=== PATIENT | male | born 1965 | race Caucasian/White ===

== ENCOUNTER 2016-12-02 17:18 | Emergency (ER) | payer SELFPAY ==
--- NOTE | ~2016-12-02 | EKG ---
PATIENT: SAE GLYNN UNIT #: [id number] Ventricular Rate: 94 BPM Atrial Rate: 94 BPM P-R Interval: 176 ms QRS Duration: 68 ms Q-T Interval: 360 ms QTC Calculation(Bezet): 450 ms P Ray: 61 degrees Calculated R Ray: -7 degrees Calculated T Ray: 47 degrees Diagnosis Line: Normal sinus rhythm Diagnosis Line: Septal infarct , age undetermined Diagnosis Line: Possible Inferior infarct , age undetermined Diagnosis Line: Abnormal ECG Diagnosis Line: No previous ECGs available Diagnosis Line: Confirmed by MASSIMO BOSTON MD ([id number]) on Diagnosis Line: 12/03/2016 4:28:33 PM INTERPRETING MD: LUDY NUNEZ
[2016-12-02 19:26] LABS: BASOPHIL# 0.1 X10e3 (0-0.3); BASOPHIL% 0.5 % (0-2.5); DIFF IND NO; HEMOGLOBIN 13.3 gm/dL (13.0-16.0); LYMPHOCYTE# 0.5 X10e3 (1.0-3.5); LYMPHOCYTE% 3.1 % (17.0-45.0); MEAN CELL VOLUME 103.7 FL (83-96); MEAN CORPUSCULAR HEMOGLOBIN 34.4 PG (28-34); MEAN CORPUSCULAR HGB CONC 33.2 g/dL (30-36); MONOCYTE# 0.4 X10e3 (0-1.0); MONOCYTE% 2.5 % (3.0-12.0); NEUTROPHIL# 13.9 X10e3 (1.5-7.1); NEUTROPHIL% 93.9 % (40-75); PLATELET COUNT 316 X10e3 (140-420); RED BLOOD COUNT 3.86 X10e (3.90-5.60); RED CELL DISTRIBUTION WIDTH 15.4 % (11.0-15.5); WHITE BLOOD COUNT 14.8 X10e3 (4.0-10.5)
[2016-12-02 19:58] LABS: ALBUMIN SERUM 5.1 g/dL (3.5-5.0); ALKALINE PHOSPHATASE 82 U/L (32-92); ALT (SGPT) 39 U/L (10-40); AST (SGOT) 74 U/L (10-42); BILIRUBIN, DIRECT 0.3 mg/dL (0.0-0.2); BILIRUBIN,INDIRECT 1.1 mg/dL (0.0-0.9); BILIRUBIN,TOTAL 1.4 mg/dL (0.2-2.0); BLOOD UREA NITROGEN 19 mg/dL (9-23); BUN/CREATININE RATIO 17.27; CALCIUM SERUM 9.9 mg/dL (8.4-10.2); CARBON DIOXIDE 25 mmol/L (22-31); CHLORIDE 90 mmol/L (100-111); CPK (CREATINE PHOSPHOKINASE) 310 IU/L (36-174); CREATININE SERUM 1.1 mg/dL (0.6-1.4); GLOM FILT RATE Estimated 78.4 mL/min (>60); GLUCOSE FASTING 180 mg/dL (70-110); POTASSIUM 4.3 mmol/L (3.5-5.1); PROTEIN TOTAL SERUM 8.9 g/dL (6.0-8.3); SODIUM 132 mmol/L (135-145)
[2016-12-02 20:00] LABS: ALCOHOL BLOOD <5 mg/dL (0)
[2016-12-02 20:29] LABS: AMPHETAMINE NEG (NEG); BARBITURATES NEG (NEG); BENZODIAZEPINES NEG (NEG); COCAINE NEG (NEG); MARIJUANA POS (NEG); OPIATES NEG (NEG); TRICYCLIC ANTIDEPRESSANTS NEG (NEG); U METHADONE NEG (NEG)
== END 2016-12-03 00:40 ==
LOC: CED 17:18
PROVIDERS: Emergency Medicine
DX: F10.231 Alcohol dependence with withdrawal delirium (principal); I10 Essential (primary) hypertension; F17.210 Nicotine dependence, cigarettes, uncomplicated
CPT/HCPCS: 36415; 80048; 80076; 80307; 82550; 85025; 93005; 96374; 99285; G0480; J2060

== ENCOUNTER 2016-12-02 21:00 | Inpatient (IN) | payer SELFPAY ==
--- NOTE | ~2016-12-02 | PN ---
Unit #: [id number] #: [id number] Patient: SAE NICOLE [id number] [facility] [address] [place] [address] [id number] MR#: [id number] NAME: SAE NICOLE ROOM: 82 Age: 51 Sex: M Admission Date: 12/03/2016 : 1965 Attending Physician: Krys Stoner M.D. Admitting Physician: Krys Stoner M.D. Primary Care Physician: Primary Care Physician Elenita MEMBRENO NOTES DATE OF SERVICE 12/04/2016 DISCUSSION Mr. Nicole is a 51-year-old white male with alcohol dependence who was seen today. Chart was reviewed and case was discussed with staff. It appears that he might be going through delirium tremens phase as he walked out and was unkempt disheveled and visibly shaking and tremulous and unsteady on his feet. It did not look good, but he stated that he is ready to get out of here, and that he has to get to work, and I tried to encourage him and redirect him stating that he is in the middle of the detox and that he is in no shape to get out of the hospital let alone to go to work, but he was not really able to (1) __ much of the information and staff has been asked to closely monitor and watch him. MENTAL STATUS EXAMINATION Middle-aged white male who is casually dressed with marginal personal hygiene, appears to be in slight distress or discomfort. The patient was awake and alert with impaired attention and concentration. His mood is anxious with congruent affect. He denies any suicidal or homicidal ideations. His insight and judgment remain significantly impaired. TREATMENT PLAN 1. We will continue him on his current treatment protocol. We will monitor his response to the medications and make further adjustments as needed. 2. We will continue to follow up. Dictated by... Angelica Cook/june TD: 12/05/2016 05:36 JOB #: [id number] Unit #: [id number] #: [id number] Patient: SAE NICOLE PROGRESS NOTES Page 1 of 1 X Krys Stoner MD NOTE
--- NOTE | ~2016-12-02 | PN ---
Unit #: [id number] #: [id number] Patient: SAE GLYNN [id number] [facility] [address] [place] [address] [id number] I MR#: [id number] NAME: SAE GLYNN ROOM: [facility] Age: 51 Sex: M Admission Date: 12/03/2016 : 1965 Attending Physician: Krys Stoner M.D. Admitting Physician: Krys Stoner M.D. Primary Care Physician: Primary Care Physician Elenita PRO PROGRESS NOTES DATE 12/05/2016 DISCUSSION Mr. Ponce is a 51-year-old, white male with alcohol dependence who was seen today and chart was reviewed and case was discussed with the staff. He has been anxious, withdrawn, disorganized and shaky and tremulous and showing very poor insight into his situation and not showing motivation towards treatment. Meanwhile, he has been taking the medication and tolerating them fairly well with no reported side effects. MENTAL STATUS EXAM Middle-aged white male who was casually dressed with marginal personal hygiene, appears to be in no acute distress or discomfort. He was awake and alert with impaired attention and concentration. His mood was anxious with congruent affect. His speech was slow and tangential. His thought processes were disorganized with some looseness of associations and flight of ideas. His insight and judgement remains significantly impaired. TREATMENT PLAN 1. We will continue him on his current medications and treatment protocol. We will monitor his response to the medications and make further adjustments as needed. 2. We will continue to follow up. Dictated by... Angelica Cook/barron TD: 12/06/2016 02:47 JOB #: [id number] Unit #: [id number] #: [id number] Patient: SAE GLYNN PEASAMANTHA PROGRESS NOTES Page 1 of 1 X Krys Stoner MD PROGRESS NOTE
--- NOTE | ~2016-12-02 | PA ---
Unit #: [id number] #: [id number] Patient: SAE GLYNN [id number] [facility] [address] [place] [address] [id number] I MR#: [id number] NAME: SAE GLYNN ROOM: P182 Age: 51 Sex: M Admission Date: 12/03/2016 : 1965 Date of Assessment: 12/03/2016 Attending Physician: Krys Stoner M.D. Admitting Physician: Krys Stoner M.D. Primary Care Physician: No Primary Care Physician PSYCHIATRIC ASSESSMENT IDENTIFYING DATA Mr. Glynn is a 51-year-old, single, white male who is a resident of [place], [place] and was transferred to our service from [facility] on a voluntary basis. CHIEF COMPLAINT "I have been a heavy drinker since I was 19 years old." HISTORY OF PRESENT ILLNESS Mr. Glynn is a 51-year-old, white male who was transferred from [facility] where he presented stating that he has been drinking since he was 19 years old and that "it has gotten worse in the last 2 months." He reports that he has been drinking 2 pints a day and he is experiencing significant tremors and that he is shaking so badly that his boss at work had noticed and he has asked him to get help and that he has desired to stop drinking on his own. He does report having difficulty and hard time due to increased bills and cost for alcohol addiction and having significant consequences because of his addiction. He also reports an increase in depression/anxiety, irritability, restlessness, and feelings of hopelessness and helplessness. He denies any suicidal ideation, intent, or plan. SUBSTANCE ABUSE HISTORY Patient has extensive history of substance abuse and dependency and reports that he has experimented and abused cannabis, crack, acid, inhalants, and amphetamines; but alcohol has been his drug of choice and reports that he has been drinking since he was 19 years old. Currently, he has been drinking 2 pints a day. PAST PSYCHIATRIC HISTORY Patient has had history of inpatient chemical dependency treatment in the past and reviewed the medical record and currently he is not active in a treatment program, is not seeing a psychiatrist, and is not taking any psychotropic medications. PAST MEDICAL HISTORY Hypertension. MEDICATION ALLERGIES No known medication allergies. PERSONAL AND SOCIAL HISTORY This is a 51-year-old, white male who reports that he is single and Unit #: [id number] #: [id number] Patient: SAE GLYNN employed and lives alone and has a poor social support system. MENTAL STATUS EXAMINATION Middle-age, white male who was casually dressed with a fair personal hygiene. Appears to be in no acute distress or discomfort. He was awake and alert on interaction with intact orientation to time, place, and person. His mood was anxious with a congruent affect. Speech was slow and goal-directed. He denies any suicidal or homicidal ideations and also denies any auditory or visual hallucinations. His insight and judgement remain slightly impaired. DIAGNOSTIC IMPRESSION PSYCHIATRIC 1. Alcohol dependence, moderate, in acute withdrawal. 2. Alcohol-induced mood disorder. MEDICAL: None. STRESSORS: Moderate psychosocial stressors. TREATMENT PLAN 1. Patient has presented with a history of mood disorder and this has been reconsidered and will need inpatient hospitalization for detoxification, safety, and stabilization. Will start him back on his home medications and will adjust the medications and monitor response. 2. Supportive therapy was provided to patient. 3. Safe, structured, and nourishing environment will be provided. ESTIMATED LENGTH OF STAY Five to seven days. ABILITY TO HELP SELF Limited. WILLINGNESS TO HELP SELF Patient appears to be willing to help self. STRENGTHS 1. Communicative. 2. Cooperative. PROBLEMS 1. Chronic dysphoric symptoms. 2. Chronic alcohol dependency. 3. Poor social support system. DISCHARGE CRITERIA This will be contingent upon patient's ability to go through detox without having any significant residual symptoms as well as ability to stay safe to himself particularly after discharge from the hospital. Dictated by... Krys Stoner M.D. Unit #: [id number] #: [id number] Patient: SAE GLYNN ALEJO/ham TD: 12/07/2016 10:09 JOB #: [id number] PSYCHIATRIC ASSESSMENT Page 1 of 1 X Krys Stoner MD PSYCHIATRIC ASSESSMENT
--- NOTE | ~2016-12-02 | DS ---
Unit #: [id number] #: [id number] [facility]: [facility] [id number] [facility] [address] [place] [address] [id number] I MR#: [id number] NAME: SAE GLYNN ROOM: [facility] Age: 51 Sex: M Admission Date: 12/03/2016 : 1965 Discharge Date: 12/06/2016 Attending Physician: Krys Stoner M.D. Primary Care Physician: Primary Care Physician No DISCHARGE SUMMARY IDENTIFYING DATA Mr. Ponce is a 51-year-old white male, who is a resident of [place], [place], and was self-referred to the hospital. DISCHARGE DIAGNOSES Psychiatric: Alcohol dependence, moderate, in acute withdrawal; alcohol-induced mood disorder. Medical: Hypertension. Stressors: Moderate psychosocial stressors. HISTORY OF PRESENT ILLNESS Please see initial psychiatric evaluation for details. PAST PSYCHIATRIC HISTORY Please see initial psychiatric evaluation for details. PAST MEDICAL HISTORY Please see initial psychiatric evaluation for details. HOSPITAL COURSE The patient was admitted to the adult chemical dependency unit at [facility] darlene Boyd and was oriented to the hospital environment. Routine p.r.n. medications were initiated, and he was started back on his home medications and alcohol detox protocol was initiated as well. He was taking the medications regularly and was tolerating them fairly well and was able to show a decent therapeutic response and was willing to continue treatment on an outpatient basis and as such, it was decided that he will be discharged home and will continue treatment on an outpatient basis. DISCHARGE MEDICATIONS None. DISCHARGE CONDITION Stable. PROGNOSIS Fair. Dictated by... Krys Stoner M.D. IAA/modl Unit #: [id number] #: [id number] Patient: SAE GLYNN TD: 12/06/2016 07:40 JOB #: [id number] DISCHARGE SUMMARY Page 1 of 1 X Krys Stoner MD X DISCHARGE SUMMARY
--- NOTE | ~2016-12-02 | HP ---
Unit #: [id number] #: [id number] Patient: SAE GLYNN [id number] [facility] [place] [address] [id number] I MR#: [id number] NAME: SAE GLYNN ROOM: P182 Age: 51 Sex: M Admission Date: 12/03/2016 : 1965 Attending Physician: Krys Stoner M.D. Admitting Physician: Krys Stoner M.D. Primary Care Physician: Primary Care Physician No HISTORY AND PHYSICAL HISTORY OF PRESENT ILLNESS Sae is a 51-year-old male admitted on 12/03/2016 to [facility] for detox from alcohol. PAST MEDICAL HISTORY Hypertension and BPH. PAST SURGICAL HISTORY Cervical fusion and tracheostomy. SOCIAL HISTORY Smokes 10 cigarettes daily. Drinks 2 pints of alcohol daily. Occasional use of marijuana. He is currently single and living alone. FAMILY HISTORY Noncontributory. REVIEW OF SYSTEMS CONSTITUTIONAL: No fever or chills. HEENT: Denies any sore throat, ear pain or runny nose. CARDIOVASCULAR: Denies chest pain, irregular heart rhythm or palpitations. CHEST: Denies shortness of breath or cough. No hemoptysis. GASTROINTESTINAL: Denies nausea, vomiting, diarrhea or chronic constipation. ENDOCRINE: Denies history of increased thirst or urination. No recent significant weight loss or gain. GENITOURINARY: Denies dysuria, frequency, or hematuria. SKIN: Denies any rashes. HEMATOLOGIC: Denies history of increased bleeding or bruising. MUSCULOSKELETAL: Denies any hot, swollen joints. No generalized muscle pain. NEUROLOGIC: Denies problems with vision or speech. No frequent, severe headaches. No numbness, tingling or weakness in any extremities. Denies loss of bladder or bowel control. CURRENT MEDICATIONS None. ALLERGIES None. PHYSICAL EXAMINATION GENERAL: Alert, oriented, no acute distress. Unit #: [id number] #: [id number] Patient: SAE GLYNN VITAL SIGNS: Blood pressure 175/127, heart rate 107, temperature 98.5, respirations 22. Height: 5 feet 6. Weight: 135 pounds. SKIN: Warm, dry. No rashes or lesions, track tillman, cuts, etc. HEENT: Normocephalic. TMs not viewed. Oronasal passages clear. Conjunctivae clear. PERRLA. EOM is intact. NECK: No lymphadenopathy or thyromegaly. HEART: Regular rate and rhythm. No murmur, gallop, or rub. LUNGS: Clear to auscultation bilaterally. ABDOMEN: Soft, nontender without palpable masses or hepatosplenomegaly. : Not assessed. EXTREMITIES: No evidence of cyanosis, clubbing, or edema. Moves all extremities independently without obvious deficit. NEUROLOGICAL: Grossly within normal limits. Cranial Nerves: II: Visual aguilar are intact. III, IV AND : Extraocular movements are intact. Pupils are equal, round and reactive to light. V: Facial sensation is grossly normal. VII: Facial movements and expression are normal. VIII: Auditory acuity grossly intact. IX, X: Uvula is midline. Phonation is normal. XI: Patient shrugs shoulders and turns head normally. XII: Tongue protrudes in the midline. Sensory and Motor Function: Sensory and motor sensation is grossly normal. Motor: moves all extremities well. Coordination: Gait is normal. Deep Tendon Reflexes: Intact. IMPRESSION 1. Psychiatric admission. 2. Hypertension. 3. Benign prostatic hypertrophy. RECOMMENDATIONS PSYCHIATRIC: Per psychiatrist. MEDICAL: No contraindication to participating in this facility's activities. MEDICAL PROGNOSIS Good. MEDICAL CONDITION Stable. Dictated by... Tez Solorzano/june TD: 12/03/2016 15:35 JOB #: [id number] Unit #: [id number] #: [id number] Patient: SAE GLYNN HISTORY AND PHYSICAL Page 1 of 1 X KHOA BROWN APRN HISTORY AND PHYSICAL
--- NOTE | ~2016-12-02 | CO ---
Unit #: [id number] #: [id number] Patient: SAE GLYNN [id number] [facility] [address] [place] [address] [id number] MR#: [id number] NAME: SAE GLYNN ROOM: 82 Age: 51 Sex: M Admission Date: 12/03/2016 : 1965 Attending Physician: Krys Stoner M.D. Primary Care Physician: Primary Care Physician No Requesting Physician: Krys Stoner M.D. Consultation Date: 12/03/2016 CONSULTATION REPORT HISTORY OF PRESENT ILLNESS Sae reports that he has a history of hypertension but has not been taking his medications since past prescribed. While he is here his blood pressure has been 175/127, 146/104, 121/92 and 143/89. He is taking p.r.n. clonidine for blood pressure. He cannot recall what he had been taking previously for his blood pressures at home. He has no complaints. PHYSICAL EXAM CARDIAC: Regular rate and rhythm. No murmur, gallop or rub. RESPIRATORY: Clear to auscultation bilaterally. ASSESSMENT AND PLAN Hypertension. We will continue with clonidine as prescribed and add amlodopine 2.4 mg p.o. daily. The patient will followup with primary care. Dictated by..Areli PrajapatiPMistiRKimberly for Dwight TD: 12/04/2016 23:26 JOB #: [id number] CONSULTATION REPORT Page 1 of 1 X KHOA BROWN APRN CONSULTATION REPORT
--- NOTE | ~2016-12-02 | A ---
[facility] Nutrition Therapy DATE: 12/05/16 Patient: SAE GLYNN Physician: AFAIRF [address] Room/Bed: [address], Zip: [place] [address] Admit Date: 12/03/16 Date of : [birth year] Height: 5 6 Weight: [phone] NUTRITIONAL ASSESSMENT: REASON: NUTRITION RISK POINT- UNINTENTIONAL WEIGHT LOSS PATIENT ADMITTED FOR ETOH DETOX PMH: HTN Anthropometrics: HT: 5'6", WT: 135#, BMI: 21.8, %IBW: 95 Labs: 12/03/16 NA: 132 Meds: DETOX PROTOCOL, VIT B COMPLEX, MVI Assessment: PATIENT IS A 51 Y/O MALE ADMITTED FOR ETOH DETOX. PATIENT IS CURRENTLY EMPLOYED, LIVES ALONE, SMOKES 1/2 PPD, HAS DAILY ETOH AND MARIJUANA USE, AND A SIGNIFICANT HX OF ILLICIT SUBSTANCE ABUSE. PATIENT HAS BEEN DRINKING 2 PINTS ETOH DAILY FOR 30 YEARS. UPON ADMIT PATIENT STATED A POOR APPETITE WITH A 30# WEIGHT LOSS OVER LAST SEVERAL MONTHS. IT IS NOTED THAT PATIENT HAS BEEN EXPERIENCING CONFUSION AND DISORIENTATION, AND IS MOST LIKELY IN THE DELIRIUM TREMENS PHASE OF HIS DETOX. IT IS UNCLEAR IF PATIENT'S STATED WEIGHT LOSS IS ACCURATE D/T NO PREVIOUS WEIGHT HX RECORDED. NURSING REPORTS FAIR-GOOD PO INTAKES. PATIENT'S BMI AND % IBW ARE WITHIN HEALTHY RANGES. PATIENT IS ON A REGULAR DIET, AND THERE ARE NO SKIN ISSUES NOTED ATT. Dx: UNINTENTIONAL WEIGHT LOSS R/T CURRENT CONDITION, DETOX AEB SELF-REPORTED WEIGHT LOSS AND DECREASED APPETITE, NUTRITIONAL RISK POINT Intervention: REGULAR DIET, MEDS PER MD, DETOX, PSYCH Monitoring, Evaluation and Goals: 1. ADEQUATE PO INTAKES >50% OF MEALS 2. PREVENT, CORRECT MICRO/MACRO NUTRIENT DEFICIENCIES MONITOR: WEIGHTS, LABS, PO/FLUID INTAKES Recommendations: 1. CONTINUE REGULAR DIET TOLERATED. OFFER SNACKS BETWEEN MEALS. IF PATIENT HAS C/O HUNGER PLEASE SEND ORDER FOR LARGE PORTION ENTREES AND RD WILL APPROVE 2. ENCOURAGE ADEQUATE PO AND FLUID INTAKES 3. OBTAIN WEIGHTS ROUTINELY (EVERY 3-4 DAYS) 4. IF PO INTAKES FALL BELOW 50% OF MEALS PLEASE ORDER ENSURE BID TO PROMOTE ADEQUATE KCAL [facility] DATE: 12/05/16 Patient: SAE GLYNN Physician: AFAIRF Address[address] Room/Bed: [address], Zip: [place] [address] Admit Date: 12/03/16 Date of : [birth year] Height: 5 6 Weight: [phone] TO F/U PER PROTOCOL AND PRN R/T PATIENT MILDLY COMPROMISED Respectfully, STANLEY MIRANDA, [place], LD [facility] cc: client file
[2016-12-03 12:35] LABS: BASOPHIL# 0.1 X10e3 (0-0.3); BASOPHIL% 0.7 % (0-2.5); EOSINOPHIL% 0.3 % (0.0-7.0); HEMATOCRIT 38.9 % (38.0-50.0); HEMOGLOBIN 13.2 gm/dL (13.0-16.0); LYMPHOCYTE# 1.6 X10e3 (1.0-3.5); LYMPHOCYTE% 15.8 % (17.0-45.0); MEAN CELL VOLUME 103.6 FL (83-96); MEAN CORPUSCULAR HEMOGLOBIN 35.2 PG (28-34); MEAN CORPUSCULAR HGB CONC 33.9 g/dL (30-36); MEAN PLATELET VOLUME 9.3 FL (6.5-11.5); MONOCYTE# 0.8 X10e3 (0-1.0); MONOCYTE% 7.7 % (3.0-12.0); NEUTROPHIL# 7.5 X10e3 (1.5-7.1); NEUTROPHIL% 75.5 % (40-75); PLATELET COUNT 273 X10e3 (140-420); RED BLOOD COUNT 3.76 X10e (3.90-5.60); WHITE BLOOD COUNT 9.9 X10e3 (4.0-10.5)
[2016-12-03 12:37] LABS: DIFF IND NO
[2016-12-03 13:25] LABS: ALBUMIN SERUM 4.5 g/dL (3.5-5.0); BILIRUBIN,TOTAL 1.7 mg/dL (0.2-2.0); CALCIUM SERUM 9.5 mg/dL (8.4-10.2); POTASSIUM 4.6 mmol/L (3.5-5.1); PROTEIN TOTAL SERUM 7.8 g/dL (6.0-8.3)
[2016-12-05 12:30] LABS: URINE APPEARANCE CLEAR; URINE BLOOD NEG (NEG); URINE COLOR YELLOW; URINE GLUCOSE NORM (NORM); URINE KETONE NEG (NEG); URINE LEUKOCYTE ESTERASE 1+ (NEG); URINE NITRATE NEG (NEG); URINE PROTEIN 3+ (NEG); URINE SPECIFIC GRAVITY 1.015 (1.003-1.035); URINE UROBILINOGEN NORM (NORM)
[2016-12-05 12:33] LABS: URINE BILIRUBIN NEG (NEG)
[2016-12-05 12:34] LABS: URBCS1 AUWI 0-2 /[HPF] (0-2); URINE BACTERIA AUWI NEG (NEGATIVE); URINE SQUAMOUS EPITHELIAL CELL FEW /[HPF]; UWBCS1 AUWI 0-2 (0-5)
[2016-12-05 12:53] LABS: AMPHETAMINE NEG (NEG); BARBITURATES NEG (NEG); BENZODIAZEPINES POS (NEG); COCAINE NEG (NEG); MARIJUANA POS (NEG); OPIATES NEG (NEG); TRICYCLIC ANTIDEPRESSANTS NEG (NEG); U METHADONE NEG (NEG)
== END 2016-12-06 09:30 | DRG 897 ==
LOC: P1E 12-03 01:09
PROVIDERS: Psychiatry & Neurology Psychiatry
PROC: HZ2ZZZZ Detoxification Services for Substance Abuse Treatment (ICD-10-PCS; principal; 2016-12-03)
DX: F10.239 Alcohol dependence with withdrawal, unspecified (principal); F10.24 Alcohol dependence with alcohol-induced mood disorder; I10 Essential (primary) hypertension; N40.0 Benign prostatic hyperplasia without lower urinary tract symptoms; Z72.0 Tobacco use
CPT/HCPCS: 80053; 80307; 81003; 85025; 86592